=== PATIENT | female | born 1960 | race Asian ===

== ENCOUNTER 2020-12-07 13:40 | Emergency (ER) | payer OTHER ==
[~2020-12-07] VITALS: Ht 165.1 cm; Wt 51.3 kg
--- NOTE | 2020-12-07 13:55 | NUR ---
Pt taken to bed 9.
[2020-12-07 13:56] VITALS: BP 154/80
--- NOTE | 2020-12-07 14:00 | NUR ---
MAY CONTACT SON FOR MALTESE TRANSLATION: [phone] (NASRA)
--- NOTE | 2020-12-07 14:15 | NUR ---
DR. SPICER ASSESSING PT AT BEDSIDE
--- NOTE | 2020-12-07 14:15 | NUR ---
59 YO F BIB SELF FOR C.C OF COUGH X3 WEEKS, N/V AND FEVER X2 DAYS, AND 10/10 NECK PAIN ON BOTH SIDES. PT DENIES DIFFICULTY SWALLOWING, AIRWAY IS INTACT. PT DENIES COVID CONTACT. LUNG SOUNDS CLEAR THROUGHOUT. S1S2 HEARD. PT PLACED ON EMERGENCY DEPARTMENT NURSE/PULSE OX. BED LOCKED AND IN LOWEST POSITION. SIDE RAILS X1. MED HX: DENIES
--- NOTE | 2020-12-07 14:31 | NUR ---
NOVEL SWAB COLLECTED GIVEN TO LAB
--- NOTE | 2020-12-07 14:32 | NUR ---
LAB AT BEDSIDE EKG AT BEDSIDE
--- NOTE | 2020-12-07 14:37 | NUR ---
RAD AT BEDSIDE
[2020-12-07 14:50] LABS: BASOPHILS % (AUTO) 0.2 % (0.0-2.0); EOSINOPHILS % (AUTO) 0.1 % (0.0-4.0); HEMATOCRIT 35.9 % (36-48); HEMOGLOBIN 12.2 g/dL (12.0-16.0); LYMPHOCYTES % (AUTO) 20.7 % (20.5-51.1); MEAN CORPUSCULAR HEMOGLOBIN 30 pg (27-31); MEAN CORPUSCULAR HGB CONC 34 g/dL (33-37); MEAN CORPUSCULAR VOLUME 89.6 fL (80-94); MONOCYTES # (AUTO) 0.2 K/uL (0.8-1.0); MONOCYTES % (AUTO) 3.6 % (1.7-9.3); NEUTROPHILS # (AUTO) 3.7 K/uL (1.8-7.7); NEUTROPHILS % (AUTO) 75.4 % (42.2-75.2); PLATELET COUNT (AUTO) 118 K/uL (140-450); RED BLOOD CELL COUNT(AUTO) 4.01 MIL/uL (4.20-5.40); WHITE BLOOD COUNT (AUTO) 4.9 K/uL (4.8-10.8)
[2020-12-07 15:01] LABS: PROTHROMBIN TIME 9.7 secs (10.8-13.4)
[2020-12-07 15:04] LABS: ALBUMIN 3.2 g/dL (3.4-5.0); ANION GAP 11.8 (8-16); CREATININE 0.7 mg/dL (0.6-1.3); POTASSIUM 3.8 mmol/L (3.5-5.1); TOTAL BILIRUBIN 0.3 mg/dL (0.0-1.0)
[2020-12-07] MEDS ORDERED: [UNRECOGNIZED DRUG - CODE] PO (15:23)
[2020-12-07 15:56] VITALS: BP 135/70
--- NOTE | 2020-12-07 15:56 | NUR ---
Patient discharged with v/s stable. Written and verbal after care instructions given and explained. Patient alert, oriented and verbalized understanding of instructions. Ambulatory with steady gait. All questions addressed prior to discharge. ID band removed. Patient advised to follow up with PMD. Rx of Doxycycline sent electronically to pharmacy. Patient educated on indication of medication including possible reaction and side effects. Opportunity to ask questions provided and answered. All instructions translated by son, language- arabic.
== END 2020-12-07 15:56 | disposition home or self-care (01) ==
LOC: MED 13:40
DX: J18.8 Other pneumonia, unspecified organism (principal); Z20.822 Contact with and (suspected) exposure to COVID-19
CPT/HCPCS: 71045; 80053; 83880; 84484; 85025; 85610; 85730; 93005; 99285; U0003